=== PATIENT | male | born 1940 | race Caucasian/White ===

== ENCOUNTER 2023-03-22 10:48 | Observation (INO) ==
[2023-03-22] MEDS ORDERED: SODIUM CHLORIDE 0.9% 500 ML IV ONE (12:18)
--- NOTE | 2023-03-22 12:21 | Emergency Department Note ---
Impression & Plan TIA (transient ischemic attack) ADMIT ED Provider Note HPI: The patient is a 83-year-old gentleman with history of peripheral artery disease, presents emergency department with a chief complaint of a transient episode of right-sided facial droop and slurred speech that occurred approximately 3 and half hours prior to arrival to the ED today. Patient's is at the bedside, she states that when they were driving in the car this morning at about 9 AM the patient had an episode where he had some right-sided facial droop with some drool coming out of the right side of his mouth, she states his speech was slurred, she states this episode lasted about 10 minutes. On arrival here to the ED the patient's symptoms have completely resolved. He is conversational on arrival, he is alert and oriented x3, no focal deficits are noted, no evidence of slurred speech during my examination. Patient is hypertensive at 164/108 on arrival, he is otherwise hemodynamically stable and saturating well on room air. ROS: - Per HPI Differential Diagnosis: Transient ischemic attack, Dickson palsy, hypoglycemic event, acute ischemic stroke, hemorrhagic stroke, amongst other potential pathologies. *Outpatient medications and allergy history reviewed. *Pertinent external medical records reviewed. PE: General: Alert HEENT: Normocephalic, trachea midline Eyes: Extraocular eye movement is intact, no scleral erythema Pulmonary: Clear to auscultation bilaterally, no wheezing Cardio: Regular rate and rhythm GI: Abdomen is soft to palpation : No suprapubic tenderness MSK: No evidence of trauma or malformation of the extremities, no edema Skin: No evidence of rash Neuro: Alert, no focal deficits, no drift of the upper extremities or lower extremities with testing against gravity, symmetrical facial movements are appreciated, no ataxia on [id number] testing bilaterally Psychiatric: Cooperative corrections counselor: (As interpreted by myself): - An order was placed for continuous cardiac monitoring - Patient was noted to be in sinus rhythm with a rate of 70 EKG: (As interpreted by myself): Rate: 69 Rhythm: Normal sinus rhythm Intervals: Within normal limits ST changes: No ST elevation Time: 1113 Interventions provided in ED: -IV fluid bolus NIH STROKE SCALE: 1A: Level of consciousness Alert; keenly responsive 0 1B: Ask month and age Both questions right 0 1C: 'Blink eyes' & 'squeeze hands' Performs both tasks 0 2: Horizontal extraocular movements Normal 0 3: Visual rees No visual loss 0 4: Facial palsy Normal symmetry 0 5A: Left arm motor drift No drift for 10 seconds 0 5B: Right arm motor drift No drift for 10 seconds 0 6A: Left leg motor drift No drift for 5 seconds 0 6B: Right leg motor drift No drift for 5 seconds 0 7: Limb Ataxia No ataxia 0 8: Sensation Normal; no sensory loss 0 9: Language/aphasia Normal; no aphasia 0 10: Dysarthria Normal 0 11: Extinction/inattention No abnormality 0 TOTAL NIH SCORE =0 Medical Decision Making: Shortly after the patient arrived IV was established lab work obtained, patient was maintained on buildings and grounds coordinator. NIH is noted to be 0 currently, patient's symptoms seem to have completely resolved therefore not considered a candidate for thrombolysis on arrival. Lab work shows no leukocytosis, hemoglobin is norm al, platelet count is normal, CMP does not show any critical findings, troponin is negative, EKG does not show any ischemic changes, noted to be normal sinus rhythm by myself. CT imaging of the head without contrast was obtained and shows no evidence of any acute intracranial process, patient declined CT angiography of the head and neck as he stated he had a history of an allergic reaction to contrast that included abnormal sensation in his throat. On my reassessment patient continues to appear well, given his episode earlier today I do have concern for transient ischemic attack and patient is considered appropriate for admission. Patient is in agreement to this. Case was discussed with the on-call hospitalist service for [facility], Dr. Henderson, and the patient was placed for admission in stable condition. Consultants: Hospitalist service, Dr. Henderson Disposition discussion held by myself with: Patient and at the bedside Diagnosis: 1. TIA symptoms Disposition: ADMIT Salvatore Perdue, DO Emergency Medicine Past Med/Surg History Social History Smoking Status: Former smoker Preferred Language: Bhutanese Feels Safe at Home: Yes Allergies Allergies Allergy/AdvReac Type Severity Reaction Status Date / Time Iodinated Contrast Media Allergy Intermediate Difficulty Verified 03/22/23 13:27 Swallowing aspirin Allergy Unknown HIVES Verified 06/01/16 09:10 bee venom protein (honey bee) Allergy Unknown SWELLING Verified 06/01/16 09:10 AT SITE AND WILL EXTEND clopidogrel Allergy Unknown STOMACH Verified 06/01/16 09:10 ULCERS Home Meds Home Medications Medication Instructions Recorded Confirmed amlodipine 10 mg tablet 10 mg PO DAILY 03/22/23 03/22/23 atorvastatin 10 mg tablet 10 mg PO DIRECTED 03/22/23 03/22/23 cholecalciferol (vitamin D3) 125 125 mcg PO DAILY 03/22/23 03/22/23 mcg (5,000 unit) capsule cilostazol 100 mg tablet 100 mg PO BID 03/22/23 03/22/23 clopidogrel 75 mg tablet 75 mg PO DAILY 03/22/23 03/22/23 cranberry 400 mg capsule 400 mg PO DAILY 03/22/23 03/22/23 cyanocobalamin (vitamin B-12) 1,000 mcg PO DIRECTED 03/22/23 03/22/23 1,000 mcg capsule metoprolol succinate 100 mg 100 mg PO DAILY 03/22/23 03/22/23 tablet,extended release 24 hr pantoprazole 40 mg tablet,delayed 40 mg PO DAILY 03/22/23 03/22/23 release potassium chloride 20 mEq 20 meq PO TID 03/22/23 03/22/23 tablet,extended release(part/cryst) riboflavin (vitamin B2) 100 mg 100 mg PO DAILY 03/22/23 03/22/23 tablet spironolactone 25 mg tablet 50 mg PO DAILY 03/22/23 03/22/23 Results & Data (ED) Vital Signs Vital Signs - 24 hr 03/22/23 10:55 03/22/23 11:30 03/22/23 11:57 Temperature 36.5 C Temperature Source Temporal Artery Scan Pulse Rate 84 73 Pulse Rate [Left Finger] 71 Pulse Rhythm Regular Pulse Rhythm [Left Finger] Respiratory Rate 22 16 Respiratory Effort / Characteristics Non-Labored Spontaneous Respiratory Depth Normal Blood Pressure 148/78 H Blood Pressure [Right Arm] 164/108 H Blood Pressure Mean 101 Blood Pressure Mean [Right Arm] 126 Pulse Oximetry 95 95 Oxygen Delivery Method Room Air Sepsis Recent Fever Within 48 Hours No Sepsis New/Unexplained Change in Mental Status No Sepsis Action Taken by Nursing No Action Required 03/22/23 12:03 03/22/23 14:19 Temperature Temperature Source Pulse Rate 69 Pulse Rate [Left Finger] 72 Pulse Rhythm Pulse Rhythm [Left Finger] Regular Respiratory Rate 15 16 Respiratory Effort / Characteristics Respiratory Depth Normal Blood Pressure Blood Pressure [Right Arm] 168/83 H Blood Pressure Mean Blood Pressure Mean [Right Arm] 111 Pulse Oximetry 94 94 Oxygen Delivery Method Room Air Room Air Sepsis Recent Fever Within 48 Hours Sepsis New/Unexplained Change in Mental Status Sepsis Action Taken by Nursing Laboratory Data 03/22/23 11:22 03/22/23 11:22 Lab Results 03/22/23 03/22/23 03/22/23 Range/Units 11:06 11:22 11:22 WBC 8.21 (4.8-10.8) K/ul RBC 4.59 L (4.70-6.10) M/uL Hgb 14.9 (14.0-18.0) g/dl Hct 41.6 L (42.0-52.0) % MCV 90.6 (80.0-100.0) fL MCH 32.5 (25.0-34.0) pg MCHC 35.8 (32.0-36.0) g/dL RDW Std Deviation 41.9 (36.4-46.3) fL RDW Coeff of Terri 12.8 (11.5-14.5) % Plt Count 272 (130-400) K/uL MPV 10.3 (9.4-12.4) fL Immature Gran % (Auto) 0.2 % Neut % (Auto) 69.5 % Lymph % (Auto) 19.5 % [place] % (Auto) 9.0 % Eos % (Auto) 1.1 % Baso % (Auto) 0.7 % Neut # (Auto) 5.70 (1.40-6.50) K/uL Lymph # (Auto) 1.60 (1.2-3.4) K/uL [place] # (Auto) 0.74 H (0.11-0.59) K/uL Eos # (Auto) 0.09 (0-0.50) K/uL Baso # (Auto) 0.06 (0-0.2) K/uL Immature Gran # (Auto) 0.02 (0.01-0.20) K/uL PT 10.3 (9.0-12.0) Seconds INR 0.9 (0.9-1.1) APTT 26.2 (21.0-31.0) Seconds PTT Ratio 0.9 Sodium (136-145) mmol/L Potassium (3.5-5.1) mmol/L Chloride (98-107) mmol/L Carbon Dioxide (21-32) mmol/L Anion Gap (3-11) BUN (6-23) mg/dl Creatinine (0.6-1.4) mg/dl Est Cr Clr Drug Dosing ml/min Est GFR ( Amer) ml/min Est GFR (Non-Af Amer) ml/min BUN/Creatinine Ratio (10-20) Glucose (70-99(Fasting)) mg/dl POC Glucose 107 H (70-99) mg/dl Calcium (8.6-10.3) mg/dl Magnesium (1.7-2.4) mg/dl Total Bilirubin (0.2-1.0) mg/dl AST (13-39) U/L ALT (7-52) U/L Alkaline Phosphatase (34-104) U/L Troponin I High Sens (0-20) pg/ml Total Protein (6.0-8.3) gm/dl Albumin (3.4-5.0) gm/dl Globulin (2.5-4.0) gm/dl Albumin/Globulin Ratio (0.9-2) 03/22/ Range/Units 11:22 WBC (4.8-10.8) K/ul RBC (4.70-6.10) M/uL Hgb (14.0-18.0) g/dl Hct (42.0-52.0) % MCV (80.0-100.0) fL MCH (25.0-34.0) pg MCHC (32.0-36.0) g/dL RDW Std Deviation (36.4-46.3) fL RDW Coeff of Terri (11.5-14.5) % Plt Count (130-400) K/uL MPV (9.4-12.4) fL Immature Gran % (Auto) % Neut % (Auto) % Lymph % (Auto) % [place] % (Auto) % Eos % (Auto) % Baso % (Auto) % Neut # (Auto) (1.40-6.50) K/uL Lymph # (Auto) (1.2-3.4) K/uL [place] # (Auto) (0.11-0.59) K/uL Eos # (Auto) (0-0.50) K/uL Baso # (Auto) (0-0.2) K/uL Immature Gran # (Auto) (0.01-0.20) K/uL PT (9.0-12.0) Seconds INR (0.9-1.1) APTT (21.0-31.0) Seconds PTT Ratio Sodium 135 L (136-145) mmol/L Potassium 4.2 (3.5-5.1) mmol/L Chloride 103 (98-107) mmol/L Carbon Dioxide 24 (21-32) mmol/L Anion Gap 8 (3-11) BUN 24 H (6-23) mg/dl Creatinine 0.73 (0.6-1.4) mg/dl Est Cr Clr Drug Dosing 72.4 ml/min Est GFR ( Amer) 100.8 ml/min Est GFR (Non-Af Amer) 87.0 ml/min BUN/Creatinine Ratio 32.9 H (10-20) Glucose 88 (70-99(Fasting)) mg/dl POC Glucose (70-99) mg/dl Calcium 9.8 (8.6-10.3) mg/dl Magnesium 1.9 (1.7-2.4) mg/dl Total Bilirubin 0.7 (0.2-1.0) mg/dl AST 18 (13-39) U/L ALT 18 (7-52) U/L Alkaline Phosphatase 61 (34-104) U/L Troponin I High Sens 4.7 (0-20) pg/ml Total Protein 7.4 (6.0-8.3) gm/dl Albumin 4.4 (3.4-5.0) gm/dl Globulin 3.0 (2.5-4.0) gm/dl Albumin/Globulin Ratio 1.5 (0.9-2) Administered Medications Discontinued Medications Sodium Chloride (Nss) 500 mls @ 999 mls/hr IV .Q31M ONE Stop: 03/22/23 12:48 Last Infusion: 03/22/23 13:10 Dose: 0 mls/hr Documented By: Admin: 03/22/23 12:26 Dose: 999 mls/hr Documented By: GISELL Imaging Data Radiologist's Impression: Chest X-Ray 03/22/23 12:02 SINGLE VIEW CHEST CLINICAL HISTORY: Atypical chest pain. Stroke like symptoms FINDINGS: An AP, portable, upright chest radiograph is obtained. No prior studies are available for comparison at the time of dictation. The examination is degraded by portable technique and apical lordotic positioning. The examination is degraded by portable technique and patient rotation. The heart is mildly enlarged noting atherosclerotic calcification of the thoracic aorta. The pulmonary vasculature is not congested. There is bibasilar scarring/atelectasis. The lungs and pleural spaces are otherwise clear. No pneumothorax is seen. The skeletal structures are osteopenic. The bony thorax is grossly intact. IMPRESSION: Cardiomegaly with no acute cardiopulmonary abnormality identified. ACT 112: Negative or not required by law. Electronically signed by: Devon Wang M.D. 03/22/2023 1:[address] 03/22/23 12:17 CT head/brain wo con CLINICAL HISTORY: neuro deficit, acute stroke suspected Technique: Contiguous axial CT images of the head were acquired from the base of the skull to the vertex without intravenous contrast administration. Images were viewed in brain, subdural and bone windows. Automated dose lowering techniques a nd/or adjustment according to patient size were utilized for this exam. Comparison: None available at the time of this dictation. Findings: The ventricles, basal cisterns, and cerebral sulci are normal. There is no acute intracranial hemorrhage or evidence of acute territorial infarction. Neither mass effect, shift of the midline structures, nor abnormal extra-axial fluid collections are shown. Imaged portions of the paranasal sinuses and mastoid air cells are clear. The orbits appear normal. There are no acute fractures of the calvaria or scalp swelling. Impression: No acute intracranial hemorrhage, no evidence of acute territorial infarction or other acute intracranial disease process. ACT 112: Negative or not required by law. Electronically signed by: Juma Hoffman M.D. 03/22/2023 1:31 PM Discharge Plan Visit Data Chief Complaint: TIA Symptoms Stated Complaint: SOB, SLURRED SPEECH,HEADACHE, REF BY DOC ED Provider: Salvatore Perdue Discharge Problem: TIA (transient ischemic attack) Forms Stand Alone Forms: My [facility] [employer] Prescriptions Prescriptions: No Action amlodipine 10 mg tablet 10 mg PO DAILY cholecalciferol (vitamin D3) 125 mcg (5,000 unit) capsule 125 mcg PO DAILY cilostazol 100 mg tablet 100 mg PO BID clopidogrel 75 mg tablet 75 mg PO DAILY cranberry 400 mg capsule 400 mg PO DAILY Rx Instructions: administer with a meal cyanocobalamin (vitamin B-12) 1,000 mcg capsule 1,000 mcg PO DIRECTED Rx Instructions: sunday and sunday pantoprazole 40 mg tablet,delayed release (DR/EC) 40 mg PO DAILY riboflavin (vitamin B2) 100 mg tablet 100 mg PO DAILY spironolactone 25 mg tablet 50 mg PO DAILY atorvastatin 10 mg tablet 10 mg PO DIRECTED Rx Instructions: takes every odd day metoprolol succinate 100 mg tablet extended release 24 hr 100 mg PO DAILY potassium chloride 20 mEq tablet,ER particles/crystals 20 meq PO TID Referrals Referrals: Layton Leal [Primary Care Provider] -
[2023-03-22 12:22] LABS: Basophils # (auto) 0.06 K/uL (0-0.2); Basophils % (auto) 0.7 %; Eosinophils # (auto) 0.09 K/uL (0-0.50); Eosinophils % (auto) 1.1 %; Hematocrit (blood only) 41.6 % (42.0-52.0); Hemoglobin 14.9 g/dl (14.0-18.0); Immature Granulocytes # (auto) 0.02 K/uL (0.01-0.20); Immature Granulocytes % (auto) 0.2 %; Lymphocytes % (auto) 19.5 %; Mean Corpuscular Hemoglobin 32.5 pg (25.0-34.0); Mean Corpuscular Hgb Conc 35.8 g/dL (32.0-36.0); Mean Corpuscular Volume 90.6 fL (80.0-100.0); Mean Platelet Volume 10.3 fL (9.4-12.4); Monocytes # (auto) 0.74 K/uL (0.11-0.59); Neutrophils % (auto) 69.5 %; Platelet Count 272 K/uL (130-400); RDW Coefficient of Variation 12.8 % (11.5-14.5); RDW Standard Deviation 41.9 fL (36.4-46.3); Red Blood Count 4.59 M/uL (4.70-6.10); White Blood Count 8.21 K/ul (4.8-10.8)
[2023-03-22 12:34] LABS: Albumin Globulin Ratio 1.5 (0.9-2); Albumin Level 4.4 gm/dl (3.4-5.0); BUN Creatinine Ratio 32.9 (10-20); Bilirubin,Total 0.7 mg/dl (0.2-1.0); Calcium 9.8 mg/dl (8.6-10.3); Creatinine Clr Calc Pharmacy 72.4 ml/min; Est GFR (African American) 100.8 ml/min; Potassium 4.2 mmol/L (3.5-5.1); Total Protein 7.4 gm/dl (6.0-8.3)
[2023-03-22 12:40] LABS: Troponin I High Sensitivity 4.7 pg/ml (0-20)
[2023-03-22 12:42] LABS: Magnesium 1.9 mg/dl (1.7-2.4)
[2023-03-22 12:43] LABS: INR 0.9 (0.9-1.1); Partial Thromboplastin Ratio 0.9; Partial Thromboplastin Time 26.2 Seconds (21.0-31.0); Prothrombin Time 10.3 Seconds (9.0-12.0)
--- NOTE | 2023-03-22 13:14 | XRay Report ---
SINGLE VIEW CHEST CLINICAL HISTORY: Atypical chest pain. Stroke like symptoms FINDINGS: An AP, portable, upright chest radiograph is obtained. No prior studies are available for c omparison at the time of dictation. The examination is degraded by portable technique and apical lord otic positioning. The examination is degraded by portable technique and patient rotation. The heart is mildly enlarged noting atherosclerotic calcification of the thoracic aorta. The pulmonary vasculat ure is not congested. There is bibasilar scarring/atelectasis. The lungs and pleural spaces are other méndez clear. No pneumothorax is seen. The skeletal structures are osteopenic. The bony thorax is gross ly intact. IMPRESSION: Cardiomegaly with no acute cardiopulmonary abnormality identified. ACT 112: Negative or not required by law. Electronically signed by: Devon Wang M.D. 03/22/2023 1:11 PM
--- NOTE | 2023-03-22 13:32 | CT Scan Report ---
CT head/brain wo con CLINICAL HISTORY: neuro deficit, acute stroke suspected Technique: Contiguous axial CT images of the head were acquired from the base of the skull to the milla davon without intravenous contrast administration. Images were viewed in brain, subdural and bone [facility]. Automated dose lowering techniques and/or adjustment according to patient size were utilized for this exam. Comparison: None available at the time of this dictation. Findings: The ventricles, basal cisterns, and cerebral sulci are normal. There is no acute intracranial hemorrh age or evidence of acute territorial infarction. Neither mass effect, shift of the midline structures , nor abnormal extra-axial fluid collections are shown. Imaged portions of the paranasal sinuses and mastoid air cells are clear. The orbits appear normal. There are no acute fractures of the calvaria or scalp swelling. Impression: No acute intracranial hemorrhage, no evidence of acute territorial infarction or other acute intracra nial disease process. ACT 112: Negative or not required by law. Electronically signed by: Juma Hoffman M.D. 03/22/2023 1:31 PM
--- NOTE | 2023-03-22 15:39 | History & Physical Report ---
Date of Service March 22, 2023 Assessment & Plan (1) Stroke-like symptoms: Plan: 83 yo male with PMHx HTN, HLD, hypokalemia, GERD, and PAD s/p R lower extremity stent, R illiac stent, and R carotid graft presents with stroke like symptoms. #Stoke like symptoms -presented with 10 minutes R facial droop and slurred speech with complete resolution after 10 minutes. Some residual asymmetry at R mouth edge on exam but resolves with smile. NIH scale 0 at initial evaluation. -CT head unremarkable without hemorrhage -EKG with PVCs otherwise NSR -Unable to obtain CTA due to severe iodinated contrast allergy. MRI brain, MRA head/neck pending. -echo ordered -lipid panel, a1c ordered -PT/OT ordered -cont. with current anti-platelet therapy for PAD with plavix and cilostazol; pt has allergy to aspirin -pt has statin intolerances as he has had struggles with myalgias on pravastatin and lipitor. Currently takes low dose lipitor every other day. Will trial pravastatin 40mg daily. -neurology consulted to optimize anti-platelet and statin therapies given intolerances #Peripheral Artery Disease -long standing severe history requiring R lower extremity stent, R iliac stent, and R carotid graft. -cont. plavix, cilostazol -imaging pending as above; consider vascular consult if stenosed carotid with complex history #HLD -hold home atorvastatin -started pravastatin as above #HTN -cont. amlodipine, metoprolol, spironolactone #Hypokalemia, chronic -cont. spironolactone, potassium supplementation #GERD -cont. home pantoprazole DVT ppx: SCDs; consider starting chemical if MRI/MRA negative FEN/GI: HH, after passing dysphagia screen Code Status: Full Dispo: PCU (2) Hypertension: (3) Hypokalemia: (4) GERD (gastroesophageal reflux disease): (5) PAD (peripheral artery disease): History of Present Illness Chief Complaint: stroke like symptoms Primary Care Provider: Layton Leal 83 yo male with PMHx HTN, HLD, hypokalemia, GERD, and PAD s/p R lower extremity stent, R illiac stent, and R carotid graft presents with stroke like symptoms. This morning around 0900 patient was on his way to a pain management appointment with his and developed R sided facial droop and slurred speech. Symptoms resolved after 10 minutes. At the pain management clinic, he was advised to present to ED for further evaluation. He does note last night he did have some R eye pain without vision changes which has continued. Denies fever, headache, chest pain, sob, difficulty swallowing, abd pain, N/V/D, extremity numbness/tingling/weakness. No h/o CVA. Former smoker. Of note he has not tolerated statins well in the past. Has tried simvastatin and atorvastatin which caused myalgias/fatigue. He is currently taking low dose atorvastatin every other day. He is also allergic to aspirin so he takes plavix and cilostazol for his PAD. He does also have an allergy to iodinated contrast so CTA was not performed on initial evaluation. Allergies Allergy/AdvReac Type Severity Reaction Status Date / Time Iodinated Contrast Media Allergy Intermediate Difficulty Verified 03/22/23 13:27 Swallowing aspirin Allergy Unknown HIVES Verified 06/01/16 09:10 bee venom protein (honey bee) Allergy Unknown SWELLING Verified 06/01/16 09:10 AT SITE AND WILL EXTEND Home Medications Medication Instructions Recorded Confirmed Type amlodipine 10 mg tablet 10 mg PO DAILY 03/22/23 03/22/23 History atorvastatin 10 mg tablet 10 mg PO DIRECTED 03/22/23 03/22/23 History cholecalciferol (vitamin D3) 125 125 mcg PO DAILY 03/22/23 03/22/23 History mcg (5,000 unit) capsule cilostazol 100 mg tablet 100 mg PO BID 03/22/23 03/22/23 History clopidogrel 75 mg tablet 75 mg PO DAILY 03/22/23 03/22/23 History cranberry 400 mg capsule 400 mg PO DAILY 03/22/23 03/22/23 History cyanocobalamin (vitamin B-12) 1,000 mcg PO DIRECTED 03/22/23 03/22/23 History 1,000 mcg capsule metoprolol succinate 100 mg 100 mg PO DAILY 03/22/23 03/22/23 History tablet,extended release 24 hr pantoprazole 40 mg tablet,delayed 40 mg PO DAILY 03/22/23 03/22/23 History release potassium chloride 20 mEq 20 meq PO TID 03/22/23 03/22/23 History tablet,extended release(part/cryst) riboflavin (vitamin B2) 100 mg 100 mg PO DAILY 03/22/23 03/22/23 History tablet spironolactone 25 mg tablet 50 mg PO DAILY 03/22/23 03/22/23 History Past Med/Surg History Social History Smoking Status: Former smoker Preferred Language: [place] Feels Safe at Home: Yes Review of Systems Review of Systems: All systems reviewed & are unremarkable except as noted in HPI & below Physical Exam Physical Exam: Constitutional: Well-developed, well-nourished patient, in no acute distress, pleasant and normal affect, intact memory. Vitals as above. HEENT: No scleral injection or discharge.Moist mucous membranes. Clear oropharynx without exudate/erythema. Neck: Supple without lymphadenopathy or thyromegaly. Trachea midline. Lungs: Clear to auscultation bilaterally with good effort. Cardiac: Regular rate and rhythm. No murmurs. No extremity edema. 2+ distal peripheral pulses. +varicose veins bilateral lower extremities. Abdomen: Bowel sounds present. Soft, nontender, and nondistended.No guarding. No hepatosplenomegaly. MSK: No cyanosis or clubbing. Skin: No rashes, warm, dry. Neurologic: +asymmetry at R lip angle/commissure which resolves with smile. Otherwise cranial nerves intact. PERRL. EOMI. Extremities motor strength 5/5. Normal and equal sensation of extremities bilaterally. Results & Data Results & Data Vital Signs (Past 12 Hours) Vital Signs Temp Pulse Pulse Resp BP BP Pulse Ox 03/22/23 15:13 67 19 150/99 H 97 03/22/23 14:19 72 16 168/83 H 94 03/22/23 12:03 69 15 94 03/22/23 11:57 71 16 164/108 H 95 03/22/23 11:30 73 03/22/23 10:55 36.5 C 84 22 148/78 H 95 O2 Del Method 03/22/23 15:13 Room Air 03/22/23 14:19 Room Air 03/22/23 12:03 Room Air 03/22/23 11:57 03/22/23 11:30 03/22/23 10:55 Room Air Laboratory Results Laboratory Results WBC 8.21 K/ul (4.8-10.8) 03/22/23 11:22 RBC 4.59 M/uL (4.70-6.10) L 03/22/23 11:22 Hgb 14.9 g/dl (14.0-18.0) 03/22/23 11:22 Hct 41.6 % (42.0-52.0) L 03/22/23 11:22 MCV 90.6 fL (80.0-100.0) 03/22/23 11:22 MCH 32.5 pg (25.0-34.0) 03/22/23 11:22 MCHC 35.8 g/dL (32.0-36.0) 03/22/23 11:22 RDW Std Deviation 41.9 fL (36.4-46.3) 03/22/23 11:22 RDW Coeff of Terri 12.8 % (11.5-14.5) 03/22/23 11:22 Plt Count 272 K/uL (130-400) 03/22/23 11:22 MPV 10.3 fL (9.4-12.4) 03/22/23 11:22 Immature Gran % (Auto) 0.2 % 03/22/23 11:22 Neut % (Auto) 69.5 % 03/22/23 11:22 Lymph % (Auto) 19.5 % 03/22/23 11:22 Guthrie % (Auto) 9.0 % 03/22/23 11:22 Eos % (Auto) 1.1 % 03/22/23 11:22 Baso % (Auto) 0.7 % 03/22/23 11:22 Neut # (Auto) 5.70 K/uL (1.40-6.50) 03/22/23 11:22 Lymph # (Auto) 1.60 K/uL (1.2-3.4) 03/22/23 11:22 Guthrie # (Auto) 0.74 K/uL (0.11-0.59) H 03/22/23 11:22 Eos # (Auto) 0.09 K/uL (0-0.50) 03/22/23 11:22 Baso # (Auto) 0.06 K/uL (0-0.2) 03/22/23 11:22 Immature Gran # (Auto) 0.02 K/uL (0.01-0.20) 03/22/23 11:22 PT 10.3 Seconds (9.0-12.0) 03/22/23 11:22 INR 0.9 (0.9-1.1) 03/22/23 11:22 APTT 26.2 Seconds (21.0-31.0) 03/22/23 11:22 PTT Ratio 0.9 03/22/23 11:22 Sodium 135 mmol/L (136-145) L 03/22/23 11:22 Potassium 4.2 mmol/L (3.5-5.1) 03/22/23 11:22 Chloride 103 mmol/L (98-107) 03/22/23 11:22 Carbon Dioxide 24 mmol/L (21-32) 03/22/23 11:22 Anion Gap 8 (3-11) 03/22/23 11:22 BUN 24 mg/dl (6-23) H 03/22/23 11:22 Creatinine 0.73 mg/dl (0.6-1.4) 03/22/23 11:22 Est Cr Clr Drug Dosing 72.4 ml/min 03/22/23 11:22 Est GFR ( Amer) 100.8 ml/min 03/22/23 11:22 Est GFR (Non-Af Amer) 87.0 ml/min 03/22/23 11:22 BUN/Creatinine Ratio 32.9 (10-20) H 03/22/23 11:22 Glucose 88 mg/dl (70-99(Fasting)) 03/22/23 11:22 POC Glucose 107 mg/dl (70-99) H 03/22/23 11:06 Calcium 9.8 mg/dl (8.6-10.3) 03/22/23 11:22 Magnesium 1.9 mg/dl (1.7-2.4) 03/22/23 11:22 Total Bilirubin 0.7 mg/dl (0.2-1.0) 03/22/23 11:22 AST 18 U/L (13-39) 03/22/23 11:22 ALT 18 U/L (7-52) 03/22/23 11:22 Alkaline Phosphatase 61 U/L (34-104) 03/22/23 11:22 Troponin I High Sens 4.7 pg/ml (0-20) 03/22/23 11:22 Total Protein 7.4 gm/dl (6.0-8.3) 03/22/23 11:22 Albumin 4.4 gm/dl (3.4-5.0) 03/22/23 11:22 Globulin 3.0 gm/dl (2.5-4.0) 03/22/23 11:22 Albumin/Globulin Ratio 1.5 (0.9-2) 03/22/23 11:22 SARS-CoV-2, RNA, NAAT NEGATIVE (NEGATIVE) 03/22/23 14:45 Impressions Chest X-Ray 03/22/23 12:02 SINGLE VIEW CHEST CLINICAL HISTORY: Atypical chest pain. Stroke like symptoms FINDINGS: An AP, portable, upright chest radiograph is obtained. No prior studies are available for comparison at the time of dictation. The examination is degraded by portable technique and apical lordotic positioning. The e xamination is degraded by portable technique and patient rotation. The heart is mildly enlarged noting atherosclerotic calcification of the thoracic aorta. The pulmonary vasculature is not congested. There is bibasilar scarring/atelectasis. The lungs and pleural spaces are otherwise clear. No pneumothorax is seen. The skeletal structures are osteopenic. The bony thorax is grossly intact. IMPRESSION: Cardiomegaly with no acute cardiopulmonary abnormality identified. ACT 112: Negative or not required by law. Electronically signed by: Devon Wang M.D. 03/22/2023 1:[address] 03/22/23 12:17 CT head/brain wo con CLINICAL HISTORY: neuro deficit, acute stroke suspected Technique: Contiguous axial CT images of the head were acquired from the base of the skull to the vertex without intravenous contrast administration. Images were viewed in brain, subdural and bone windows. Automated dose lowering techniques and/or adjustment according to patient size were utilized for this exam. Comparison: None available at the time of this dictation. Findings: The ventricles, basal cisterns, and cerebral sulci are normal. There is no acute intracranial hemorrhage or evidence of acute territorial infarction. Neither mass effect, shift of the midline structures, nor abnormal extra-axial fluid collections are shown. Imaged portions of the paranasal sinuses and mastoid air cells are clear. The orbits appear normal. There are no acute fractures of the calvaria or scalp swelling. Impression: No acute intracranial hemorrhage, no evidence of acute territorial infarction or other acute intracranial disease process. ACT 112: Negative or not required by law. Electronically signed by: Juma Hoffman M.D. 03/22/2023 1:31 PM Supervising Physician Co-Signing Physician Notes Patient seen and examined, chart reviewed, case discussed with Bin Sapp, DO and I agree with the assessment and plan as above except as otherwise noted Labs and images reviewed Melchor is an 83-year-old male with a past medical history of anaphylactic contrast allergy, hypertension, peripheral vascular disease, and chronic low back pain with radiculopathy who was on his way to a pain management outpatient visit when he developed R facial droop, drooling, and slurred speech concerning for stroke. Sx lasted ~10 minutes and resolved by time of pain management office eval, but based on sx was recommended to go to ER due to concern for CVA/TIA. Hx of R iliac and leg stent and R cartoid repait and possible graft at [facility]. By time of ER evaluation his symptoms had normalized. He was recommended for admission for evaluation of TIA. At bedside trace R upper lip asymmetry which corrects on smile, cheek puff normal. No focal extremity weakness of sensory change. No vision change. PERLAA. No bruits. No NLF asymmetry. Speech is fluent and normal. CThead is with no acute findings on admission. CT angiography with pretreatment was declined by patient due to a history of throat swelling and severe anaphylactic reaction to iodinated contrast in the past. While in the ER he received 500 cc of NSS. He has no leukocytosis, creatinine is normal, COVID is negative, CXR shows cardiomegaly with no acute findings, and EKG is normal sinus rhythm QTc 447, no territorial ST or T wave changes. No echo is on file available for review. Patient is not on aspirin due to a severe hives allergy, is on Cilostazol and Plavix. BP at time of hospitalist evaluation 150/99, pulse 67. Agree w/ MRI-B, MRA-H noncon, MRA-N w/wo. Hx of R cartoid synthetic graft. If restonotic --> vascular consult. Agree w/ assessment and management above. Permissive HTN. Echo pending. Resident Activity Tracking Resident Involvement: Resident Care Provided Care Provided: [facility]
--- NOTE | 2023-03-22 16:14 | Electrocardiogram Report ---
Test Reason : Blood Pressure : / mmHG Vent. Rate : 069 BPM Atrial Rate : 069 BPM P-R Int : 170 ms QRS Dur : 082 ms QT Int : 418 ms P-R-T Axes : 059 016 052 degrees QTc Int : 447 ms Normal sinus rhythm Confirmed by Osmar Michael ([id number]) on 03/22/2023 4:13:58 PM Referred By: Confirmed By:Patrick Michael
[2023-03-22] MEDS ORDERED: PHARMACIST DISCHARGE MED REC CONSULT PRN (20:06)
[2023-03-22] MEDS ORDERED: POLYETHYLENE (MIRALAX) 17 GM PACK PO PRN (20:06)
[2023-03-22] MEDS ORDERED: ONDANSETRON 4 MG OD TAB PO PRN (20:06)
[2023-03-22] MEDS ORDERED: ACETAMINOPHEN 325 MG TAB PO PRN (20:06)
[2023-03-22] MEDS: PRAVASTATIN SOD 40 MG TAB PO SCH (20:14)
[2023-03-22 21:02] LABS: Chol HDL Ratio 2.2 (0-5)
[2023-03-22] MEDS ORDERED: LORazepam 2 MG/1 ML VIAL IV PRN (21:49)
--- NOTE | 2023-03-22 22:09 | Magnetic Resonance Report ---
Exam(s): MRA HEAD Without Contrast EXAM: MR Angiography Head Without Intravenous Contrast CLINICAL HISTORY: Reason for exam: TIA/CVA, has severe iodinated contrast allergy. TECHNIQUE: Magnetic resonance angiography images of the head without intravenous contrast. MIP reformats are performed at the PACS workstation. COMPARISON: None. FINDINGS: Right internal carotid artery: Patent. Right anterior cerebral artery: Patent. Right middle cerebral artery: Patent. Right posterior cerebral artery: Patent. Right vertebral artery: Nondominant, distal vessel poorly seen, probably terminates as a PICA, though V4 intracranial occlusion difficult to exclude. Left internal carotid artery: Patent. Left anterior cerebral artery: Patent. Left middle cerebral artery: Patent. Left posterior cerebral artery: Patent. Left vertebral artery: Patent. Basilar artery: Patent. Other: IMPRESSION: 1. Nonvisualized right V4 vertebral artery, may be developmental, as it is nondominant, and likely terminates as a PICA. 2. No aneurysm or definite large vessel occlusion. Electronically signed by: Sandra Charles M.D. 03/22/23 22:08 PM
[2023-03-22] MEDS ORDERED: GADOBUTROL 65ML VIAL IV ONE (22:14)
--- NOTE | 2023-03-22 22:18 | Magnetic Resonance Report ---
MRI OF THE BRAIN WITHOUT IV CONTRAST CLINICAL HISTORY: Strokelike symptoms. Right-sided facial droop. Slurred speech. COMPARISON STUDY: CT of the brain dated 03/22/2023. TECHNIQUE: MRI of the brain was performed utilizing various T1 and T2-weighted sequences in the axial , sagittal, and coronal planes. IV contrast was not administered for this examination. FINDINGS: Brain parenchyma: There is age-related involutional change noting mild subcortical and periventricula r microangiopathic disease. There is no hemorrhage or mass effect. There is no restricted diffusion t o suggest acute ischemia. Serrato-white matter differentiation is preserved. No extra-axial fluid collec tion is seen. The cerebellar tonsils are normal in configuration. Ventricles, sulci, and cisterns: Prominent secondary to involutional change. Pituitary and sella: Unremarkable. Intracranial vasculature: Normal flow voids are maintained at the skull base. Orbits: The bony orbits are grossly intact. Orbital contents are normal in appearance. Sinuses and mastoids: There is an 11 mm retention cyst in the right maxillary antrum. The remaining p aranasal sinuses and mastoid air cells are clear. Calvarium: Unremarkable. Cervical cord: Partially visualized cervical spinal cord is normal in morphology and signal intensity . IMPRESSION: No acute intracranial abnormality. ACT 112: Negative or not required by law. Electronically signed by: Devon Wang M.D. 03/22/2023 10:15 PM
[2023-03-22] MEDS: cilostazoL 100 MG TAB PO SCH (22:26)
[2023-03-22] MEDS: POTASSIUM CHLORIDE CRTAB 20 MEQ TABCR PO SCH (22:26)
--- NOTE | 2023-03-22 22:52 | Magnetic Resonance Report ---
MR ANGIOGRAM OF THE NECK COMBO CLINICAL HISTORY: Transient ischemic attack. COMPARISON STUDY: No priors. TECHNIQUE: Axial 3-D [id number] MR angiography of the neck is performed. Subsequently, following the IV administration of 7 cc of Gadavist. Coronal MR angiogram of the neck was performed to corrobor ate the findings. 3-D reformats are created and assessed. All measurements were calculated based on N ASCET criteria. FINDINGS: Visualized portions of the thoracic aorta are normal in caliber. The aortic arch demonstrat es standard 3-vessel anatomy. The subclavian arteries are widely patent bilaterally. The right common carotid artery is widely patent, as are the right internal and external carotid arteries. The left c ommon carotid artery is widely patent. There is high-grade stenosis at the origin of the left interna l carotid artery. The remainder of the left internal carotid artery is widely patent. There is also s tenosis of the origin of the left external carotid artery. There is at least moderate stenosis of the origin of the left vertebral artery. The vertebral arteries are otherwise widely patent. The left ve rtebral artery is dominant. The visualized intracranial vessels at the skull base appear patent. IMPRESSION: 1. There is at least moderate stenosis at the origin of the left vertebral artery. The vertebral katharine lai otherwise patent bilaterally. 2. There is high-grade stenosis at the origin of the left internal carotid artery. The remainder of t he vessel is patent. 3. The right internal carotid arterial system is patent. 4. There is also stenosis at the origin of the left external carotid artery. ACT 112: Negative or not required by law. Electronically signed by: Devon Wang M.D. 03/22/2023 10:50 PM
[2023-03-23 07:46] LABS: Estimated Average Glucose 111 mg/dl; Hemoglobin A1C 5.5 % (4.5-5.6)
--- NOTE | 2023-03-23 08:01 | Hospitalist Progress Note ---
Date of Service March 23, 2023 Assessment & Plan (1) Stroke-like symptoms: Plan: 83 yo male with PMHx HTN, HLD, hypokalemia, GERD, and PAD s/p R lower extremity stent, R illiac stent, and R carotid graft presents with stroke like symptoms. Stroke-Like Sx (R Facial Droop/Slurred Speech) - Duration: Completely resolved after 10 minutes. Assymmetry of R mouth resolves w/ smile - NIH Scale 0 - Evaluation: * CT Head unremarkable w/o hemorrage * CTA Unobtainable d/t contrast allergy * MRI/MRA pending * EKG - NSR on 03/22 * Echo pending * Lipid Panel - unremarkable on 03/22 * A1c - 5.5 on 03/22 * CBC/CMP - unremarkable - PT/OT ordered - Neurology consulted - Continue DAPT - Plavix and Cilostazol (allergy to Aspirin) - Continue trial of Pravastatin 40 mg daily * Was on low-dose Lipitor every other day * Statin intolerance with Pravastatin and Lipitor in the past Neurology: - 83-year-old male presenting with TIA symptoms localizing to the left cerebral hemisphere occurring in the context of a probably symptomatic high-grade stenosis at the origin of the left internal carotid artery. Patient is neurologically intact this morning. He has a history of right carotid stenting or endarterectomy and peripheral arterial disease with multiple stents. - Consult vascular surgery for symptomatic left ICA stenosis. - Agree with dual antiplatelet therapy, clopidogrel, and Pletal for the time being. Agree with increasing patient's doses of pravastatin to 40 mg/day, goal LDL 70 or less. - Permissive hypertension acceptable for the time being, systolic blood pressure 140 to 160 mmHg. #Peripheral Artery Disease -long standing severe history requiring R lower extremity stent, R iliac stent, and R carotid graft. -cont. plavix, cilostazol -imaging pending as above; consider vascular consult if stenosed carotid with complex history #HLD -hold home atorvastatin -started pravastatin as above #HTN -cont. amlodipine, metoprolol, spironolactone #Hypokalemia, chronic -cont. spironolactone, potassium supplementation #GERD -cont. home pantoprazole DVT ppx: SCDs; consider starting chemical if MRI/MRA negative FEN/GI: HH, after passing dysphagia screen Code Status: Full Dispo: PCU (2) Hypertension: (3) Hypokalemia: (4) GERD (gastroesophageal reflux disease): (5) PAD (peripheral artery disease): Admission and Anticipated Discharge Date Admission Date: March 22, 2023 Subjective 03/23: Physical Exam Physical Exam: Constitutional: Well-developed, well-nourished patient, in no acute distress, pleasant and normal affect, intact memory. Vitals as above. HEENT: No scleral injection or discharge.Moist mucous membranes. Clear oropharynx without exudate/erythema. Neck: Supple without lymphadenopathy or thyromegaly. Trachea midline. Lungs: Clear to auscultation bilaterally with good effort. Cardiac: Regular rate and rhythm. No murmurs. No extremity edema. 2+ distal peripheral pulses. +varicose veins bilateral lower extremities. Abdomen: Bowel sounds present. Soft, nontender, and nondistended.No guarding. No hepatosplenomegaly. MSK: No cyanosis or clubbing. Skin: No rashes, warm, dry. Neurologic: +asymmetry at R lip angle/commissure which resolves with smile. Otherwise cranial nerves intact. PERRL. EOMI. Extremities motor strength 5/5. Normal and equal sensation of extremities bilaterally. Results & Data Results & Data Vital Signs (Past 12 Hours) Vital Signs Temp Pulse Pulse Resp BP BP Pulse Ox 03/23/23 07:36 36.8 C 71 20 137/82 95 03/23/23 02:53 36.7 C 73 18 153/79 H 94 03/23/23 00:00 77 03/22/23 20:05 75 03/22/23 23:35 36.5 C 70 18 173/70 H 94 03/22/23 20:10 36.3 C L 69 18 182/80 H 97 O2 Del Method 03/23/23 07:36 Room Air 03/23/23 02:53 Room Air 03/23/23 00:00 03/22/23 20:05 03/22/23 23:35 Room Air 03/22/23 20:10 Room Air Diagnostic Findings Chest X-Ray 03/22/23 12:02 IMPRESSION: Cardiomegaly with no acute cardiopulmonary abnormality identified. Head CT 03/22/23 12:17 Impression: No acute intracranial hemorrhage, no evidence of acute territorial infarction or other acute intracranial disease process. Brain MRI 03/22/23 20:06 IMPRESSION: No acute intracranial abnormality. Head MRA 03/22/23 20:06 IMPRESSION: 1. Nonvisualized right V4 vertebral artery, may be developmental, as it is nondominant, and likely terminates as a PICA. 2. No aneurysm or definite large vessel occlusion. Neck MRA 03/22/23 20:06 IMPRESSION: 1. There is at least moderate stenosis at the origin of the left vertebral artery. The vertebral arteries otherwise patent bilaterally. 2. There is high-grade stenosis at the origin of the left internal carotid artery. The remainder of the vessel is patent. 3. The right internal carotid arterial system is patent. 4. There is also stenosis at the origin of the left external carotid artery.
[2023-03-23 08:20] LABS: Basophils # (auto) 0.08 K/uL (0-0.2); Eosinophils # (auto) 0.22 K/uL (0-0.50); Eosinophils % (auto) 2.6 %; Hematocrit (blood only) 42.6 % (42.0-52.0); Hemoglobin 14.9 g/dl (14.0-18.0); Immature Granulocytes # (auto) 0.02 K/uL (0.01-0.20); Immature Granulocytes % (auto) 0.2 %; Lymphocytes # (auto) 2.08 K/uL (1.2-3.4); Lymphocytes % (auto) 24.7 %; Mean Corpuscular Volume 91.6 fL (80.0-100.0); Mean Platelet Volume 10.1 fL (9.4-12.4); Monocytes # (auto) 0.78 K/uL (0.11-0.59); Monocytes % (auto) 9.3 %; Neutrophils # (auto) 5.23 K/uL (1.40-6.50); Neutrophils % (auto) 62.2 %; Platelet Count 298 K/uL (130-400); RDW Coefficient of Variation 12.9 % (11.5-14.5); RDW Standard Deviation 43.2 fL (36.4-46.3); Red Blood Count 4.65 M/uL (4.70-6.10); White Blood Count 8.41 K/ul (4.8-10.8)
[2023-03-23 08:40] LABS: BUN Creatinine Ratio 22.6 (10-20); Calcium 9.6 mg/dl (8.6-10.3); Creatinine Clr Calc Pharmacy 68.6 ml/min; Est GFR (African American) 95.2 ml/min; Est GFR (Non-African American) 82.1 ml/min; Magnesium 1.9 mg/dl (1.7-2.4); Potassium 3.7 mmol/L (3.5-5.1)
[2023-03-23] MEDS ORDERED: amLODIPine BESYLATE 5 MG TAB PO SCH (09:00)
[2023-03-23] MEDS ORDERED: PANTOprazole 40 MG TAB PO SCH (09:00)
[2023-03-23] MEDS ORDERED: CLOPIDOGREL BISULFATE 75 MG TAB PO SCH (09:00)
[2023-03-23] MEDS ORDERED: METOPROLOL SUCC 50MG EXT REL TAB PO SCH (09:00)
[2023-03-23] MEDS ORDERED: SPIRONOLACTONE 25 MG TAB PO SCH (09:00)
[2023-03-23] MEDS: POTASSIUM CHLORIDE CRTAB 20 MEQ TABCR PO SCH ×2 (09:21→13:34)
[2023-03-23] MEDS: cilostazoL 100 MG TAB PO SCH (09:23)
--- NOTE | 2023-03-23 09:51 | Neurology Consultation ---
Date of Consultation March 23, 2023 Assessment & Plan (1) TIA (transient ischemic attack): (2) Stenosis of left internal carotid artery: Plan 83-year-old male presenting with TIA symptoms localizing to the left cerebral hemisphere occurring in the context of a probably symptomatic high-grade stenosis at the origin of the left internal carotid artery. Patient is neurologically intact this morning. He has a history of right carotid stenting or endarterectomy and peripheral arterial disease with multiple stents. Consult vascular surgery for symptomatic left ICA stenosis. Agree with dual antiplatelet therapy, clopidogrel, and Pletal for the time being. Agree with increasing patient's doses of pravastatin to 40 mg/day, goal LDL 70 or less. Permissive hypertension acceptable for the time being, systolic blood pressure 140 to 160 mmHg. History of Present Illness Reason for Consultation: TIA Requesting Physician: Senait Attending Physician: Ilir Anne, History of Present Illness The patient is an 83-year-old male who presented to the emergency department yesterday afternoon with a complaint of sudden onset right facial weakness and slurred speech that resolved within 10 minutes. No associated headache, vertigo, vision disturbance, or weakness or numbness of the limbs. He did well call having some right eye pain the previous night and has had this symptom previously. Again, no vision disturbance. History notable for right carotid endarterectomy as well as peripheral vascular disease with stents. He is allergic to aspirin and is prescribed cilostazol. He also takes atorvastatin and antihypertensives. This morning, he is without specific or focal neurologic complaint. He has been afebrile. His blood pressure has been modestly elevated. Hemoglobin A1c was 5.5. Triglycerides 104, cholesterol 185, LDL 79, VLDL 21, HDL 85. A CT of the head and brain MRI are negative for hemorrhage or acute process. The brain MRI does reveal age-related involutional change and mild subcortical and periventricular microangiopathic disease. 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 An MRA of the neck reveals a high-grade stenosis at the origin of the left internal carotid artery. There is moderate stenosis at the origin of the left vertebral artery. I independently reviewed these images and agree with the findings as described by radiology. An electrocardiogram has revealed a normal sinus rhythm. Allergies Allergy/AdvReac Type Severity Reaction Status Date / Time Iodinated Contrast Media Allergy Intermediate Difficulty Verified 03/22/23 13:27 Swallowing aspirin Allergy Unknown HIVES Verified 06/01/16 09:10 bee venom protein (honey bee) Allergy Unknown SWELLING Verified 06/01/16 09:10 AT SITE AND WILL EXTEND Home Medications Medication Instructions Recorded Confirmed Type amlodipine 10 mg tablet 10 mg PO DAILY 03/22/23 03/22/23 History atorvastatin 10 mg tablet 10 mg PO DIRECTED 03/22/23 03/22/23 History cholecalciferol (vitamin D3) 125 125 mcg PO DAILY 03/22/23 03/22/23 History mcg (5,000 unit) capsule cilostazol 100 mg tablet 100 mg PO BID 03/22/23 03/22/23 History clopidogrel 75 mg tablet 75 mg PO DAILY 03/22/23 03/22/23 History cranberry 400 mg capsule 400 mg PO DAILY 03/22/23 03/22/23 History cyanocobalamin (vitamin B-12) 1,000 mcg PO DIRECTED 03/22/23 03/22/23 History 1,000 mcg capsule metoprolol succinate 100 mg 100 mg PO DAILY 03/22/23 03/22/23 History tablet,extended release 24 hr pantoprazole 40 mg tablet,delayed 40 mg PO DAILY 03/22/23 03/22/23 History release potassium chloride 20 mEq 20 meq PO TID 03/22/23 03/22/23 History tablet,extended release(part/cryst) riboflavin (vitamin B2) 100 mg 100 mg PO DAILY 03/22/23 03/22/23 History tablet spironolactone 25 mg tablet 50 mg PO DAILY 03/22/23 03/22/23 History Patient History Social History Smoking Status: Never smoker Hx Alcohol Use: Yes Alcohol type: beer Hx Substance Use: No Preferred Language: Ivorian Communication Ability: Effective Senior Financial Consultant Required: No Beliefs That Will Affect Care: None Current Living Situation: Spouse Other Information That Helps Us Care for You: No Feels Safe at Home: Yes Safety Concerns: Feels Safe At This Time Assistive Devices: CPAP, Denture - Upper and Denture - Lower Assistive Devices Comment: Pt states he does not use cpap Review of Systems Constitutional: no fever and no chills Eyes: as per Subjective / HPI; no blind spots and no diplopia Ear, Nose, Mouth, Throat: no hearing loss Respiratory: no cough and no dyspnea Cardiovascular: no chest pain and no palpitations Gastrointestinal: no nausea and no vomiting Genitourinary: no dysuria Musculoskeletal: no neck pain and no myalgia Integumentary: no rash and no lesions Neurologic: as per Subjective / HPI Psychiatric: no depression and no anxiety Hematologic / Lymphatic: no easy bleeding and no easy bruising Exam (Neuro) Constitutional: well developed and well nourished Eyes: normal visual rees by confrontation, PERRL and EOM intact bilaterally Cardiovascular: Vessels: + carotid bruit Neurologic: Oriented to:: Person, Place and Time Memory: Short Term Intact and Remote Intact Attention: Span Intact and Concentration Intact Speech Fluency: negative Dysarthria or Dysfluency Fund of Knowledge: Current Events, Past History and Vocabulary Cranial Nerves: Normal II, III, IV, , V, VII, VIII, IX, X, XI and XII Motor Strength: Normal Lower Extremities and Normal Upper Extremities Motor Tone: Normal Lower Extremities and Normal Upper Extremities Muscle Bulk/Involuntary Movements: No Involuntary Movements; negative Muscle Atrophy Sensation: Light Touch Intact, Pain/Temperature Intact, Vibration Intact and Proprioception Intact Coordination: Normal; negative Limited Balance, Dysdiadochokinesia, Finger-Nose Abnormal or Heel-Cooney Abnormal Deep Tendon Reflexes: Rt Triceps: 2+, Lt Triceps: 2+, Rt Biceps: 2+, Lt Biceps: 2+, Rt Brachioradialis: 2+, Lt Brachioradialis: 2+, Rt Patellar: 2+, Lt Patellar: 2+, Rt Ankle: 1+ and Lt Ankle: 1+ Special Tests: negative Babinski Present Gait: Normal Station and Gait Results & Data Vital Signs (Past 12 Hours) Vital Signs Temp Pulse Pulse Resp BP Pulse Ox O2 Del Method 03/23/23 07:36 36.8 C 71 20 137/82 95 Room Air 03/23/23 02:53 36.7 C 73 18 153/79 H 94 Room Air 03/23/23 00:00 77 03/22/23 23:35 36.5 C 70 18 173/70 H 94 Room Air Coding Level of Care Code 11288 INT INP/OBS CARE 2/55MIN Diagnoses TIA (transient ischemic attack) G45.9 Stenosis of left internal carotid artery I65.22
--- NOTE | 2023-03-23 10:40 | Pharmacy Report ---
- Date of Service March 23, 2023 - Pharmacy CVA/TIA Medication Review Medications to Prevent Stroke handout has been added to the patients discharge packet. Antiplatelet(s) * Cilostasol 100 mg PO BID * Clopidogrel 75 mg PO daily Cholesterol * Pravastatin 40 mg PO daily (moderate intensity) * High intensity statin deferred due to age >75 DVT Prophylaxis * SCD knee Therapeutic Anticoagulation * No history of Afib/Aflutter noted Type 2 Diabetes * Patient does not have T2DM
--- NOTE | 2023-03-23 11:55 | XCELERA ---
[id number] [id number]
--- NOTE | 2023-03-23 15:44 | Communication Note ---
Date of Service: March 23, 2023 Patient was seen, examined, and chart reviewed. Agree with exam and treatment plan of the Vascular PA. We recommend left carotid intervention. We discussed CEA vs TCAR with patient and his family. The will decided this weekend on which procedure to undergo. He will be scheduled for this coming sunday. He needs to stay on his plavix and statin. Thank you very much for letting us participate in the care of this patient.
--- NOTE | 2023-03-23 15:52 | Consultation ---
Date of Consultation March 23, 2023 Assessment & Plan (1) Stenosis of left internal carotid artery: Pt with symptomatic stenosis of L ICA. Pt also seen by Dr Marcano today. Options of L CEA vs TCAR were discussed wtih pt at length by Dr Marcano. Pt wishes to think it over and make a decision on Sunday. Tentatively planning intervention on [place]. Office will contact pt to set up procedure. OK for d/c from vascular standpoint. (2) PAD (peripheral artery disease): Pt with hx of PAD and AIOD, with previous interventions done at [facility]. Is considering moving his vascular care here to be more local. Will discuss after L carotid intervention. Pt currently stable. History of Present Illness Reason for Consultation: L ICAS Attending Physician: Ilir Anne DO History of Present Illness 83 yo m with hx of PAD, carotid stenosis, HTN, GERD, lumbar disc degeneration, arthritis, admitted with L hemispheric TIA sx lasting about 10 minutes, seen in consultation today for L ICA stenosis noted on MRA. Pt states no hx of CVA, but had R CEA which required further surgery, possibly an interposition graft, in remote past. States he had R facial droop and difficulty speaking for about 10 minutes yesterday, which completely resolved. Admits mild associated L sided ARANDA, also resolved. 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 Has has stenting of RLE in past. Deneis ARANDA, fever, chest pain, SOB, abd pain, N/V, rest pain, ulcerations, other complaints. Is typically very active. MRa neck demonstrates 85% stenosis of L ICA. Allergies Allergy/AdvReac Type Severity Reaction Status Date / Time Iodinated Contrast Media Allergy Intermediate Difficulty Verified 03/22/23 13:27 Swallowing aspirin Allergy Unknown HIVES Verified 06/01/16 09:10 bee venom protein (honey bee) Allergy Unknown SWELLING Verified 06/01/16 09:10 AT SITE AND WILL EXTEND Home Medications Medication Instructions Recorded Confirmed Type amlodipine 10 mg tablet 10 mg PO DAILY 03/22/23 03/22/23 History atorvastatin 10 mg tablet 10 mg PO DIRECTED 03/22/23 03/22/23 History cholecalciferol (vitamin D3) 125 125 mcg PO DAILY 03/22/23 03/22/23 History mcg (5,000 unit) capsule cilostazol 100 mg tablet 100 mg PO BID 03/22/23 03/22/23 History clopidogrel 75 mg tablet 75 mg PO DAILY 03/22/23 03/22/23 History cranberry 400 mg capsule 400 mg PO DAILY 03/22/23 03/22/23 History cyanocobalamin (vitamin B-12) 1,000 mcg PO DIRECTED 03/22/23 03/22/23 History 1,000 mcg capsule metoprolol succinate 100 mg 100 mg PO DAILY 03/22/23 03/22/23 History tablet,extended release 24 hr pantoprazole 40 mg tablet,delayed 40 mg PO DAILY 03/22/23 03/22/23 History release potassium chloride 20 mEq 20 meq PO TID 03/22/23 03/22/23 History tablet,extended release(part/cryst) riboflavin (vitamin B2) 100 mg 100 mg PO DAILY 03/22/23 03/22/23 History tablet spironolactone 25 mg tablet 50 mg PO DAILY 03/22/23 03/22/23 History Patient History Social History Smoking Status: Never smoker Hx Alcohol Use: Yes Alcohol type: beer Hx Substance Use: No Preferred Language: Greek Communication Ability: Effective Control Manager Required: No Beliefs That Will Affect Care: None Current Living Situation: Spouse Feels Safe at Home: Yes Assistive Devices: None Review of Systems Review of Systems: All systems reviewed & are unremarkable except as noted in HPI & below Physical Exam Constitutional: WD/WN, vitals as above cooperative and comfortable; not in distress Neck: trachea midline (well healed R neck CEA incision) Respiratory: normal respiratory effort, lungs clear to auscultation A uscultation: + diminished lung sounds Cardiovascular: Rate/Rhythm: regular rate and regular rhythm Vessels: femoral pulses present, dorsalis pedis pulses present and radial pulses present; + abnormal peripheral pulses and + posterior tibial pulses abnormal Extremities: normal capillary refill; no edema Gastrointestinal (Abdomen): Inspection/Auscultation: abdomen normal to inspection and normal bowel sounds Percussion/Palpation: abdomen soft; abdomen nontender Musculoskeletal: no cyanosis or clubbing, extremities motor strength 5/5 Skin: no rashes, warm and dry Neurologic: moves all extremities and awake; no focal motor deficits and not confused Speech / Cognition: normal speech Psychiatric: A+Ox3, euthymic affect Results & Data Vital Signs (Past 12 Hours) Vital Signs Temp Pulse Resp BP Pulse Ox O2 Del Method 03/23/23 12:04 36.5 C 73 18 157/93 H 93 Room Air 03/23/23 07:36 36.8 C 71 20 137/82 95 Room Air
[2023-03-23] MEDS: PRAVASTATIN SOD 40 MG TAB PO SCH (16:55)
--- NOTE | 2023-03-23 17:15 | Communication Note ---
Date of Service: March 23, 2023 By CMS guidelines, a determination that the admission or continued stay is not medically necessary has been made by a member of the UR committee and a physi jose a for this hospital stay, therefore a Code 44 will be completed and the Inpatient admission will be changed to outpatient.
--- NOTE | 2023-03-23 17:16 | Communication Note ---
Date of Service: March 23, 2023 By CMS guidelines, a determination that the admission or continued stay is not medically necessary has been made by a member of the UR committee and a phys ician for this hospital stay, therefore a Code 44 will be completed and the Inpatient admission will be changed to outpatient.
[2023-03-23] MEDS ORDERED: STROKE PATIENT DISCHARGE STA (17:17)
--- NOTE | 2023-03-23 17:30 | Discharge Summary ---
Date of Service March 23, 2023 Admission HPI Per Admitting Provider 83 yo male with PMHx HTN, HLD, hypokalemia, GERD, and PAD s/p R lower extremity stent, R illiac stent, and R carotid graft presents with stroke like symptoms. This morning around [address] his way to a pain management appointment with his and developed R sided facial droop and slurred speech. Symptoms resolved after 10 minutes. At the pain management clinic, he was advised to present to ED for further evaluation. He does note last night he did have some R eye pain without vision changes which has continued. Denies fever, headache, chest pain, sob, difficulty swallowing, abd pain, N/V/D, extremity n umbness/tingling/weakness. No h/o CVA. Former smoker. Of note he has not tolerated statins well in the past. Has tried simvastatin and atorvastatin which caused myalgias/fatigue. He is currently taking low dose atorvastatin every other day. He is also allergic to aspirin so he takes plavix and cilostazol for his PAD. He does also have an allergy to iodinated contrast so CTA was not performed on initial evaluation. Admission Exam Per Admitting Provider Constitutional: Well-developed, well-nourished patient, in no acute distress, pleasant and normal affect, intact memory. Vitals as above. HEENT: No scleral injection or discharge.Moist mucous membranes. Clear oropharynx without exudate/erythema. Neck: Supple without lymphadenopathy or thyromegaly. Trachea midline. Lungs: Clear to auscultation bilaterally with good effort. Cardiac: Regular rate and rhythm. No murmurs. No extremity edema. 2+ distal peripheral pulses. +varicose veins bilateral lower extremities. Abdomen: Bowel sounds present. Soft, nontender, and nondistended.No guarding. No hepatosplenomegaly. MSK: No cyanosis or clubbing. Skin: No rashes, warm, dry. Neurologic: +asymmetry at R lip angle/commissure which resolves with smile. Otherwise cranial nerves intact. PERRL. EOMI. Extremities motor strength 5/5. Normal and equal sensation of extremities bilaterally. Principal Diagnosis Transient Ischemic Attack Discharge Exam Gen: NAD, alert, interactive HEENT: Supple, no LAD, no thyromegaly, no JVD Resp:Non-labored, no wheezing/rhonchi/rales, CTAB CV:RRR, normal S1/S2, no M/R/G Abd: Soft, non-distended, no TTP, normoactive bowels, no masses Extr: 2+ dp bilaterally, no edema Neuro: AO x 3, speech clear, strength and sensation intact in UE and LE, CN II- XII grossly intact Skin: No rashes lesions or erythema Discharge Data Allergies Allergy/AdvReac Type Severity Reaction Status Date / Time Iodinated Contrast Media Allergy Intermediate Difficulty Verified 03/22/23 13:27 Swallowing aspirin Allergy Unknown HIVES Verified 06/01/16 09:10 bee venom protein (honey bee) Allergy Unknown SWELLING Verified 06/01/16 09:10 AT SITE AND WILL EXTEND Consultations 03/22/23 14:56 ED Decision to Admit Stat 03/23/23 07:00 Consult Neurology Routine 03/23/23 11:32 Consult Vascular Surgery Routine Procedures Performed Brain MRI 03/22/23 20:06 MRI OF THE BRAIN WITHOUT IV CONTRAST CLINICAL HISTORY: Strokelike symptoms. Right-sided facial droop. Slurred speech. COMPARISON STUDY: CT of the brain dated 03/22/2023. TECHNIQUE: MRI of the brain was performed utilizing various T1 and T2-weighted sequences in the axial, sagittal, and coronal planes. IV contrast was not administered for this examination. FINDINGS: Brain parenchyma: There is age-related involutional change noting mild subcortical and periventricular microangiopathic disease. There is no hemorrhage or mass effect. There is no restricted diffusion to suggest acute ischemia. Serrato-white matter differentiation is preserved. No extra-axial fluid collection is seen. The cerebellar tonsils are normal in configuration. Ventricles, sulci, and cisterns: Prominent secondary to involutional change. Pituitary and sella: Unremarkable. Intracranial vasculature: Normal flow voids are maintained at the skull base. Orbits: The bony orbits are grossly intact. Orbital contents are normal in appearance. Sinuses and mastoids: There is an 11 mm retention cyst in the right maxillary antrum. The remaining paranasal sinuses and mastoid air cells are clear. Calvarium: Unremarkable. Cervical cord: Partially visualized cervical spinal cord is normal in morphology and signal intensity. IMPRESSION: No acute intracranial abnormality. ACT 112: Negative or not required by law. Electronically signed by: Devon Wang M.D. 03/22/2023 10:15 PM Head MRA 03/22/23 20:06 Exam(s): MRA HEAD Without Contrast EXAM: MR Angiography Head Without Intravenous Contrast CLINICAL HISTORY: Reason for exam: TIA/CVA, has severe iodinated contrast allergy. TECHNIQUE: Magnetic resonance angiography images of the head without intravenous contrast. MIP reformats are performed at the PACS workstation. COMPARISON: None. FINDINGS: Right internal carotid artery: Patent. Right anterior cerebral artery: Patent. Right middle cerebral artery: Patent. Right posterior cerebral artery: Patent. Right vertebral artery: Nondominant, distal vessel poorly seen, probably terminates as a PICA, though V4 intracranial occlusion difficult to exclude. Left internal carotid artery: Patent. Left anterior cerebral artery: Patent. Left middle cerebral artery: Patent. Left posterior cerebral artery: Patent. Left vertebral artery: Patent. Basilar artery: Patent. Other: IMPRESSION: 1. Nonvisualized right V4 vertebral artery, may be developmental, as it is nondominant, and likely terminates as a PICA. 2. No aneurysm or definite large vessel occlusion. Electronically signed by: Sandra Charles M.D. 03/22/23 22:08 PM Neck MRA 03/22/23 20:06 MR ANGIOGRAM OF THE NECK COMBO CLINICAL HISTORY: Transient ischemic attack. COMPARISON STUDY: No priors. TECHNIQUE: Axial 3-D [id number] MR angiography of the neck is performed. Subsequently, following the IV administration of 7 cc of Gadavist. Coronal MR angiogram of the neck was performed to corroborate the findings. 3-D reformats are created and assessed. All measurements were calculated based on NASCET criteria. FINDINGS: Visualized portions of the thoracic aorta are normal in caliber. The aortic arch demonstrates standard 3-vessel anatomy. The subclavian arteries are widely patent bilaterally. The right common carotid artery is widely patent, as are the right internal and external carotid arteries. The left common carotid a rtery is widely patent. There is high-grade stenosis at the origin of the left internal carotid artery. The remainder of the left internal carotid artery is widely patent. There is also stenosis of the origin of the left external carotid artery. There is at least moderate stenosis of the origin of the left vertebral artery. The vertebral arteries are otherwise widely patent. The left vertebral artery is dominant. The visualized intracranial vessels at the skull base appear patent. IMPRESSION: 1. There is at least moderate stenosis at the origin of the left vertebral artery. The vertebral arteries otherwise patent bilaterally. 2. There is high-grade stenosis at the origin of the left internal carotid artery. The remainder of the vessel is patent. 3. The right internal carotid arterial system is patent. 4. There is also stenosis at the origin of the left external carotid artery. ACT 112: Negative or not required by law. Electronically signed by: Devon Wang M.D. 03/22/2023 10:50 PM Ordered Studies 03/22/23 12:17 CT head/brain wo con Stat 03/22/23 20:06 MR angio head wo con Urgent MR angio neck wo/w con Routine MR brain wo con Routine Hospital Course (1) Stenosis of left internal carotid artery: (2) PAD (peripheral artery disease): Plan 83 yo male with PMHx HTN, HLD, hypokalemia, GERD, and PAD s/p R lower extremity stent, R illiac stent, and R carotid graft presents with stroke like symptoms. Stroke-Like Sx (R Facial Droop/Slurred Speech) - Duration: Completely resolved after 10 minutes. Asymmetry of R mouth resolves w/ smile - NIH Scale 0 - Evaluation: * CT Head unremarkable w/o hemorrage * CTA Unobtainable d/t contrast allergy * Brain MRI/MRA unremarkable * Neck MRA w/ evidence of moderate L vertebral stenosis and severe L ICA stenosis * EKG - NSR on 03/22 * Echo w/o wall motion anomalies, EF 55-60%, no significant valvular disease * Lipid Panel - unremarkable on 03/22 * A1c - 5.5 on 03/22 * CBC/CMP - unremarkable- PT/OT ordered - Continue DAPT - Plavix and Cilostazol (allergy to Aspirin) --- Start Atorvastatin 80 mg PO daily (high intensity statin recommended) and continue DAPT --- Neurology recommending statin and DAPT w/ vascular surgery evaluation --- Vascular sugery recommending follow up outpatient with intervention regarding high grade L ICA stenosis Peripheral Artery Disease - Continue DAPT --- Vascular to follow up outpatient for surgical intervention of severe L ICA stenosis HLD - LDL 79, goal < 70 in setting of TIA/Stroke Like Sx - Start Atorvastatin 80 mg daily for high intensity statin dosing HTN - Cont. amlodipine, metoprolol, spironolactone Hypokalemia, chronic - Cont. spironolactone, potassium supplementation GERD - Cont. home pantoprazole DVT ppx: SCDs; ambulation at home FEN/GI: HH Code Status: Full Dispo: Home Total Time Total Time Spent Total Time Spent (In Minutes): >30 Discharge Plan Discharge Items Patient Disposition: Home - Self-Care Reason For Visit: STROKE LIKE SYMPTOMS Discharge Diagnosis: Transient Ischemic Attack Activity: Per Instructions section Non-emergency contact: Primary Care Provider Call non-emergency contact if: you have any medication questions and your symptoms worsen Follow-up/Referrals: Toro Marcano MD [Physician] - (Call the office with any questions. Will contact the patient on Sunday for his decision) Layton Leal [Primary Care Provider] - Diet: Regular Addtl Attending Provider Instructions: TIA -The symptoms you had were consistent with a TIA (transient ischemic attack). This is when there is a blockage of blood flow to her brain, but before there is any or damaged brain tissue, her body is able to restore blood flow - in evaluating your cause of TIA, the carotid artery blockage appears to be the culprit. The main successful way to protect you from a stroke when someone has a carotid artery blockage is to have the carotid artery blockage remedied surgically. Whether you have things taken care of here or with your vascular surgeon at [facility] is okay either waywe just want this taken care of in a timely fashion (in the next few weeks) as it is a bit of a ticking clock with chance of stroke going up over time - as we discussed extensivelythe side effects of statins can be so vague and attributable to so many different things, that people often the state cause/effect. When you were on the Crestor, and experienced overwhelming muscle aches to where you could not get out of bed that started about 3-4 weeks after starting it, and took about 2 weeks to resolve, are pretty typical for what would expect with a statin. The fatigue you are attributing to your Lipitor is unlikely to be the case. - The reason that we "hammer" at higher dosing of Lipitor or Crestor with people with vascular disease is that the research would show really only Lipitor and Crestor at high dosing gets the most "bang for your toth" of protecting people from heart attacks and strokes as it relates to their cholesterol. Its not simply a matter of lowering the cholesterol to good levels, it is also about stabilizing the plaque in the arteryand generally speaking only atorvastatin (Lipitor) at 40-80 mg and Crestor (rosuvastatin) at 20-40 mg really gets that. - Since fatigue is likely attributable to other problems (see below) and its not likely that the Lipitor will cause you problemsespecially given that you can already tolerate it at 10 mg every other daywe will have you try a plaque stabilizing dose and follow things closely. If you have muscle aches (particularly reminiscent of what you felt on the Crestor) then stop the Lipitor and Dr. Leal can switch you over to Pravachol (pravastatin) (it is not nearly as good at protecting people from strokes as Lipitor/Crestor, but generally is the best tolerated, and is "better than doing nothing") - interestingly, even if this ends up being a "failed experiment" as far as being able to tolerate Lipitor, there is some research showing that surgical outcomes are better when somebody has been on a high-dose statin for the preceding several weeksso in the end, I certainly hope that you can tolerate the Lipitor at 80 mg, but even if you cannotthis is sort of the perfect time to try given that you will be looking at a carotid surgery in the near future. Fatigue - as we discussed, fatigue related to statins is rarely an isolated symptom. Usually it is that people have fatigue because they are aching so much that they also feel tired. I really suspect your fatigue is much more of a sleep issue problem. - Sleep apnea: When people have sleep apnea, they do not get deep sleep (where we make melatonin and growth hormone) and generally do not feel nearly as refreshed. Saying it differently, untreated sleep apnea is almost a guarantee to feel fatiguedand given how likely untreated sleep apnea is to cause fatigue, I do not think we would need to look for any other reasons for you to be fatigued until we are treating the sleep apnea effectively. Since your mask is leaking, I would call Dicksif they need new prescriptions, they can call the doctor who prescribes your CPAP. Like we discussed, people being able to tolerate CPAP or not he is almost always in their "pregame mindset" of deciding if they will succeed or fail. - Racing thoughts: Having your mind race about things is probably the most common reason for people to have insomnia. It is often an offshoot of anxiety, and as we discussed, that is actually very common and is simply part of being humanso if you find that you do have some anxiety going on, it is okay to seek help! At the same time, we discussed that something as simple as writing down what you are thinking about before bed (and/or praying about it to try to turn it over to God) can be very helpful for most people. This is not where you are trying to solve things or trying to plan out what you do, it really is just putting your thoughts on paper as a placeholder to tell your brain "we can worry about that tomorrow but for now let's sleep" - if medications end up being discussed to help you sleepI tend to find the antidepressants that have fatigue as a side effect to be the most helpfulparticularly trazodone and mirtazapinebut I would hesitate to use those while you are still drinking 4 beers a nightfor risk of interaction/oversedation. If you are able to cut that down a little bit further, it would probably be safe - we had not discussed, but it is also interesting to note, that whenever we sleep with a degree of intoxication, this also breaks are sleep cycles in a way similar to sleep apneathat you probably have broken sleep on top of broken sleepgiven that you fall asleep after having 4 beers and have untreated sleep apnea. Down the roadsome sort of regular light cardiovascular exercise could be imm ensely helpfulboth in terms of vascular health, and in terms of anxiety/stress/sleep. In a perfect world, we would have you doing some sort of cardiovascular exercise 20 minutes nonstopremember my example of how playing hockey does not really count is cardiovascularso being active is better than being sedentary, but doing something for 20 minutes nonstop at least has a significant benefit well beyond being active. Obviously take care of what is in front of you, but start to build a plan of how you might start getting in some regular exercise in the near future talk to Dr. Leal about the weight lossthat is definitely much more longitudinal problem, and something that I would not really be able to do justice to as a "1-off" under the circumstances, but definitely not something that should not be ignored Pending Studies at Discharge: No Stand-Alone Forms: My [facility], Smoking Cessation, Medications to Prevent Stroke Medications and DC Order Prescriptions: New atorvastatin 80 mg tablet 80 mg PO DAILY Qty: 30 0RF Continued amlodipine 10 mg tablet 10 mg PO DAILY cholecalciferol (vitamin D3) 125 mcg (5,000 unit) capsule 125 mcg PO DAILY cilostazol 100 mg tablet 100 mg PO BID clopidogrel 75 mg tablet 75 mg PO DAILY cranberry 400 mg capsule 400 mg PO DAILY Rx Instructions: administer with a meal cyanocobalamin (vitamin B-12) 1,000 mcg capsule 1,000 mcg PO DIRECTED Rx Instructions: sunday and sunday pantoprazole 40 mg tablet,delayed release (DR/EC) 40 mg PO DAILY riboflavin (vitamin B2) 100 mg tablet 100 mg PO DAILY spironolactone 25 mg tablet 50 mg PO DAILY metoprolol succinate 100 mg tablet extended release 24 hr 100 mg PO DAILY potassium chloride 20 mEq tablet,ER particles/crystals 20 meq PO TID Discontinued atorvastatin 10 mg tablet 10 mg PO DIRECTED Rx Instructions: takes every odd day Discharge Orders: Discharge Order (Routine); Ordered 03/23/23 Ordered By: Ilir Anne Admission Data Admit Date/Time: 03/22/23 16:18 Attending Provider: Ilir Anne Admit Provider: Bin Sapp Primary Care Provider: Layton Leal Other Providers: Quique Henderson ; Bin Sapp ; Aries Tyler ; Toro Marcano Other Interventions: Discharge Summary Assessment (RN) Last Done: 03/23/23 17:31 Supervising Physician Co-Signing Physician Notes I personally examined the patient and verified all miles points of history and exam, discussed case, and agree with decision making with Dr Dawn feeling better and would like to go home. Discussed extensively. See below, see discharge instructions personally prepared by me. Vitals noted, in general he is awake and alert pleasant no distress. No focal neurodeficits. Skin without rashes pallor or icterus, exam otherwise as above, labs and imaging noted TIAmost likely due to his tight carotidis contemplating carotid surgeryheavily encouraged to do so given his stenosis, TIAs, and overall favorable outcomes. Secondary risk reductionalready on dual antiplatelets, outpatient blood pressure management as right now would be too difficult to tell if its autoregulation/hospital related provoked hypertension, versus needing better baseline control. Discussed high intensity statinhe sounds to have had a legitimate statin myalgia reaction to rosuvastatin, but he takes Lipitor 10 mg every other day and attributes fatigue rather than myalgias to this. We dove into his fatigue extensivelyhe has sleep apnea that he absolutely does not treat, he has some insomnia issues that seem to center around racing thoughts, and he drinks 4 beers a day. We discussed that those are far more likely to be causative of his fatigue, and discussed means to try to help improve those. As it relates to his vascular disease, reiterated the potential outcome benefit of a high intensity statin, and he was willing to try again. So we are going to send him on 80 mg of atorvastatinif he does get achesparticularly aches reminiscent of his rosuvastatin episode, he is to stop the Lipitor and discussed with his PCP, and probably fall back on Pravachol as a "better than nothing" solution. Vascular surgery follow-up in the next week. Safe/stable for home. Resident Activity Tracking Resident Involvement: Resident Care Provided Care Provided: Adult Hospital Medicine
--- NOTE | 2023-03-23 19:38 | Billing Data ---
Date of Service March 23, 2023 Coding Level of Care Code 93081 INP/OBS DISCH >30 MIN
== END 2023-03-23 17:58 | disposition home or self-care (01) ==
LOC: ED 10:48 → INTOOBSV 16:18 → SUATTDRO 16:18 → EDINP 16:18 → 2E 19:34
DX: Z79.899 Other long term (current) drug therapy; Z87.891 Personal history of nicotine dependence; I10 Essential (primary) hypertension; Z79.02 Long term (current) use of antithrombotics/antiplatelets; Z95.820 Peripheral vascular angioplasty status with implants and grafts; G45.9 Transient cerebral ischemic attack, unspecified; E87.6 Hypokalemia; E78.5 Hyperlipidemia, unspecified; Z20.822 Contact with and (suspected) exposure to COVID-19; K21.9 Gastro-esophageal reflux disease without esophagitis; Z88.6 Allergy status to analgesic agent; Z91.041 Radiographic dye allergy status; I73.9 Peripheral vascular disease, unspecified